=== PATIENT | female | born 1990 | race Caucasian/White ===

== ENCOUNTER 2019-01-06 19:07 | Emergency (ER) | payer SELFPAY ==
[~2019-01-06] VITALS: Ht 172.7 cm; Wt 81.8 kg
[~2019-01-06 19:07] MED LIST: ATIVAN 0.50.5 MG/TAB PO; FLEXERIL 1010 MG/TAB; FLEXERIL 1010 MG/TAB PO; LORTAB 5/500 501 TAB PO; LUTERA 0.02 MG-1 TAB PO; NAPROSYN500 MG PO; NORCO 325 MG-101 TAB; NORCO 325 MG-101 TAB PO; NORCO 325 MG-51 TAB PO; PERCR 7.5 PO; ROBAXIN 75750 MG/TAB PO; ROXICODONE30 MG; ULTRAM 50MG TAB50 MG PO; XANAX 0.5MG0.5 MG; ZOFRAN 4MG T4 MG/TAB PO
[2019-01-06 19:15] VITALS: BP 119/61; TEMP 98.4
[2019-01-06] MEDS ORDERED: PROAIR HFA0.09 MG/AC IH (20:12)
[2019-01-06 20:28] VITALS: PULSE 88
== END 2019-01-06 20:28 | disposition home or self-care (01) ==
LOC: COL.ER 19:07
DX: J02.0 Streptococcal pharyngitis (principal); J45.909 Unspecified asthma, uncomplicated
CPT/HCPCS: J0561; J1100

== ENCOUNTER → 2019-09-29 | Outpatient (CLI) | payer MEDICAID ==
[~2019-09-29] MED LIST changes: +PROAIR HFA0.09 MG/AC IH
== END ==
LOC: COL.RAD 08:15
DX: H47.11 Papilledema associated with increased intracranial pressure (principal)
CPT/HCPCS: A9585

== ENCOUNTER → 2021-04-02 | Outpatient (CLI) | payer MEDICAID | LOC: COL.RAD 07:48 | DX: R74.8 Abnormal levels of other serum enzymes (principal); Z90.49 Acquired absence of other specified parts of digestive tract ==

== ENCOUNTER 2022-12-22 14:15 | Outpatient (RCR) | payer MEDICAID | END 2022-12-23 | disposition home or self-care (01) | LOC: WSPT | DX: S93.491D Sprain of other ligament of right ankle, subsequent encounter (principal); X58.XXXD Exposure to other specified factors, subsequent encounter ==

== ENCOUNTER 2023-01-14 14:15 | Outpatient (RCR) | payer MEDICAID | END 2023-01-23 | disposition home or self-care (01) | LOC: WSPT | DX: S99.911D Unspecified injury of right ankle, subsequent encounter (principal) ==